=== PATIENT | male | born 1980 | race Caucasian/White ===

== ENCOUNTER 2022-02-04 07:25 | Emergency (ER) | payer MEDICARE, OTHER ==
[~2022-02-04] VITALS: Ht 170.2 cm; Wt 72.6 kg
[2022-02-04] MEDS ORDERED: PREG300 PO (07:52)
[2022-02-04] MEDS ORDERED: SUCR1 PO (07:53)
[2022-02-04] MEDS ORDERED: ALBU90OI INH (07:53)
[2022-02-04] MEDS ORDERED: Bentyl10 MG/ML IM (07:53)
[2022-02-04] MEDS ORDERED: Triamcinolone A15 G3 TOP (07:53)
[2022-02-04] MEDS ORDERED: CYCL10 PO (07:53)
[2022-02-04] MEDS ORDERED: FAMO20 PO (07:54)
[2022-02-04] MEDS ORDERED: CIPR500 PO (09:05)
== END 2022-02-04 09:16 | disposition home or self-care (01) ==
LOC: ER 07:25
DX: H66.92 Otitis media, unspecified, left ear (principal); H72.92 Unspecified perforation of tympanic membrane, left ear; F17.210 Nicotine dependence, cigarettes, uncomplicated
CPT/HCPCS: 99282; A9270

== ENCOUNTER 2022-02-24 12:29 | Emergency (ER) | payer MEDICARE, OTHER ==
[~2022-02-24] VITALS: Ht 170.2 cm; Wt 76.8 kg
[~2022-02-24 12:29] MED LIST: ALBU90OI INH; Bentyl10 MG/ML IM; CIPR500 PO; CYCL10 PO; FAMO20 PO; PREG300 PO; SUCR1 PO; Triamcinolone A15 G3 TOP
[2022-02-24] MEDS ORDERED: AMOCLA875 PO (12:48)
== END 2022-02-24 12:50 | disposition home or self-care (01) ==
LOC: ER 12:29
DX: H66.92 Otitis media, unspecified, left ear (principal); F17.210 Nicotine dependence, cigarettes, uncomplicated; Z88.0 Allergy status to penicillin; Z88.1 Allergy status to other antibiotic agents; Z88.8 Allergy status to other drugs, medicaments and biological substances; Z88.5 Allergy status to narcotic agent
CPT/HCPCS: 99282

== ENCOUNTER 2022-07-07 01:03 | Emergency (ER) | payer MEDICARE, OTHER ==
[~2022-07-07 01:03] MED LIST changes: +AMOCLA875 PO
[2022-07-07] MEDS ORDERED: AMOCLA875 PO (02:31)
== END 2022-07-07 02:56 | disposition home or self-care (01) ==
DX: S21.152A Open bite of left front wall of thorax without penetration into thoracic cavity, initial encounter (principal); S51.851A Open bite of right forearm, initial encounter; W54.0XXA Bitten by dog, initial encounter; F17.210 Nicotine dependence, cigarettes, uncomplicated

== ENCOUNTER 2022-07-18 13:26 | Emergency (ER) | payer MEDICARE, OTHER ==
[~2022-07-18] VITALS: Ht 170.2 cm; Wt 79.4 kg
[2022-07-18 14:57] LABS: Albumin, Blood 3.9 g/dL (3.4-5.0); Albumin/Globulin Ratio 1.1 (0.8-1.8); BASOPHILS ABSOLUTE AUTO 0.04 K/mm3 (0.00-0.23); BASOPHILS PERCENT AUTO 1 % (0-2); Bilirubin, Total 0.4 mg/dL (0.1-1.0); Bun/Creatinine Ratio 14.7 (12.0-20.0); Calcium, Blood 9.3 mg/dL (8.5-10.1); Creatinine, Blood 0.82 mg/dL (0.60-1.20); EOSINOPHILS ABSOLUTE AUTO 0.07 K/mm3 (0.00-0.68); EOSINOPHILS PERCENT AUTO 1 % (0-6); Globulin, Blood 3.5 g/dL (2.2-4.0); Hemoglobin 15.4 g/dL (13.5-17.5); IMMATURE GRAN ABSOLUTE AUTO 0.03 K/mm3 (0.00-0.10); IMMATURE GRAN PERCENT AUTO 0 % (0-1); LYMPHOCYTES ABSOLUTE AUTO 2.28 K/mm3 (0.84-5.20); LYMPHOCYTES PERCENT AUTO 28 % (21-46); MONOCYTES ABSOLUTE AUTO 0.88 K/mm3 (0.16-1.47); MONOCYTES PERCENT AUTO 11 % (4-13); Mean Corpuscular HGB 30.7 pg (26.0-34.0); Mean Corpuscular Volume 88 fL (80-100); Mean Platelet Volume 9.4 fL (9.1-12.4); NEUTROPHILS ABSOLUTE AUTO 4.95 K/mm3 (1.96-9.15); NEUTROPHILS PERCENT AUTO 60 % (41-73); Platelet Count 341 K/mm3 (150-400); Potassium, Blood 3.7 mmol/L (3.5-5.5); RDW Coefficient Variation 12.8 % (11.7-14.2); RDW Standard Deviation 41.6 fL (35.1-46.3); Red Blood Cell Count 5.01 M/mm3 (4.30-5.90); Total Protein, Blood 7.4 g/dL (6.4-8.2); White Blood Cell Count 8.25 K/mm3 (4.00-11.30)
[2022-07-18] MEDS ORDERED: AMOCLA875 PO (17:00)
== END 2022-07-18 17:11 | disposition home or self-care (01) ==
LOC: ER 13:26
PROVIDERS: Physician Assistant
DX: Z48.00 Encounter for change or removal of nonsurgical wound dressing (principal); G80.9 Cerebral palsy, unspecified; F17.210 Nicotine dependence, cigarettes, uncomplicated; Z79.899 Other long term (current) drug therapy; Z88.0 Allergy status to penicillin; Z88.8 Allergy status to other drugs, medicaments and biological substances; Z88.5 Allergy status to narcotic agent
CPT/HCPCS: 36415; 80053; 85025